=== PATIENT | male | born 2005 | race Two or more races ===

== ENCOUNTER 2025-03-22 23:47 | Emergency (ER) | payer MEDICAID, OTHER ==
[~2025-03-22] VITALS: Ht 167.6 cm; Wt 83.9 kg
[2025-03-23 00:27] VITALS: BP 116/72; PULSE 69; RESP 17; TEMP 98.8; O2SAT 98
[2025-03-23] MEDS ORDERED: ACET500T58 PO (01:00)
[2025-03-23] MEDS ORDERED: CYCL-614 PO (01:00)
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
== END 2025-03-23 01:07 | disposition home or self-care (01) ==
LOC: ER 23:47
DX: S16.1XXA Strain of muscle, fascia and tendon at neck level, initial encounter (principal); S39.012A Strain of muscle, fascia and tendon of lower back, initial encounter; S40.012A Contusion of left shoulder, initial encounter; R51.9 Headache, unspecified; V49.40XA Driver injured in collision with unspecified motor vehicles in traffic accident, initial encounter; Y93.I9 Activity, other involving external motion; Y92.488 Other paved roadways as the place of occurrence of the external cause; Y99.8 Other external cause status